=== PATIENT | female | born 1995 | race Caucasian/White ===

== ENCOUNTER 2017-07-27 20:12 | Inpatient (IN) | payer MEDICAID ==
[~2017-07-27] VITALS: Ht 170.2 cm; Wt 112.3 kg
[2017-07-27 20:26] VITALS: BP 132/74; PULSE 79; RESP 18; TEMP 97.8; O2SAT 100
[2017-07-27] MEDS ORDERED: PROZ20CA11 PO (20:30)
[2017-07-27] MEDS ORDERED: SODIUM CHLOR 0.9% 1000 ML INJ 1,000 ML IV SCH (20:52)
--- NOTE | 2017-07-27 20:55 | PD ---
HPI Chief Complaint: Flank/Kidney Pain Time Seen by Provider: 20:46 Travel History International Travel<30 days: No Contact w/Intl Traveler<30days: No Traveled to known affect area: No History of Present Illness HPI 22-year-old female sent here from [facility] for evaluation of left flank pain. Apparently the patient took an overdose of Zoloft a couple days ago and was recently released from [facility] to [facility]. She began complaining of left flank pain and hematuria to them, and told them that she has one kidney, and because of this apparently she is out of their scope of care. According to the transfer note the patient is suicidal, however is voluntary and not under a [place] act. Patient reports that she has had left flank pain for the last 2 days which has been intermittent, sharp, no modifying factors. No nausea or vomiting. No fevers or chills. Reports history of kidney stone. She denies IVDU. She continues to have suicidal thoughts. PFSH Past Medical History Bipolar Disorder: Yes Kidney Stones: Yes Medical other: Yes (one kidney) Psychiatric: Yes (borderline personality disorder) ?: Not Past Surgical History Tonsillectomy: Yes Social History Alcohol Use: No Tobacco Use: No Substance Use: No Allergies-Medications (Allergen,Severity, Reaction): Coded Allergies: Penicillins (Verified Allergy, Severe, 07/27/17) Uncoded Allergies: seafood (Allergy, Severe, 07/27/17) Reported Meds & Prescriptions Reported Meds & Active Scripts Active Reported Prozac (Fluoxetine HCl) 20 Mg Cap 20 Mg PO DAILY Review of Systems Except as stated in HPI: all other systems reviewed are Neg Physical Exam Narrative GENERAL: Well-developed, well-nourished, overweight, comfortable, no apparent distress. SKIN: Focused skin assessment warm/dry. No rash. Left forearm with well healed scars from self inflicted wounds. HEAD: Atraumatic. Normocephalic. EYES: Pupils equal and round. No scleral icterus. No injection or drainage. ENT: Mucous membranes pink and moist. NECK: Trachea midline. No JVD. CARDIOVASCULAR: Regular rate and rhythm. No murmur appreciated. RESPIRATORY: No accessory muscle use. Clear to auscultation. Breath sounds equal bilaterally. GASTROINTESTINAL: Abdomen soft, non-tender, nondistended. Hepatic and splenic margins not palpable. MUSCULOSKELETAL: No obvious deformities. No clubbing. No cyanosis. No edema. No midline vertebral step-off or tenderness. Mild left CVA tenderness. No right CVA tenderness. NEUROLOGICAL: Awake and alert. No obvious cranial nerve deficits. Motor grossly within normal limits. Normal speech. PSYCHIATRIC: Appropriate mood and affect; insight and judgment normal. Data Data Last Documented VS Vital Signs Date Time Temp Pulse Resp B/P (MAP) Pulse Ox O2 Delivery O2 Flow Rate FiO2 07/27/17 21:44 18 98 Room Air 07/27/17 20:26 97.8 79 Orders Orders Complete Blood Count With Diff (07/27/17 20:52) Comprehensive Metabolic Panel (07/27/17 20:52) Lipase (07/27/17 20:52) Prothrombin Time / Inr (Pt) (07/27/17 20:52) Act Partial Throm Time (Ptt) (07/27/17 20:52) Urinalysis - C+S If Indicated (07/27/17 20:52) Ct Abd/Pel W/O Iv Contrast (07/27/17 20:52) Iv Access Insert/Monitor (07/27/17 20:52) Ecg Monitoring (07/27/17 20:52) Oximetry (07/27/17 20:52) Sodium Chlor 0.9% 1000 Ml Inj (Ns 1000 M (07/27/17 20:52) Sodium Chloride 0.9% Flush (Ns Flush) (07/27/17 21:00) Ed Urine Pregnancytest Poc (07/27/17 20:52) Urine Culture (07/27/17 21:30) Ceftriaxone Inj (Rocephin Inj) (07/27/17 23:00) Psych Screen (07/27/17 22:52) Labs Laboratory Tests Test 07/27/17 21:30 White Blood Count 11.1 TH/MM3 Red Blood Count 5.14 MIL/MM3 Hemoglobin 12.7 GM/DL Hematocrit 39.2 % Mean Corpuscular Volume 76.4 FL Mean Corpuscular Hemoglobin 24.8 PG Mean Corpuscular Hemoglobin Concent 32.5 % Red Cell Distribution Width 15.5 % Platelet Count 463 TH/MM3 Mean Platelet Volume 7.5 FL Neutrophils (%) (Auto) 64.5 % Lymphocytes (%) (Auto) 26.8 % Monocytes (%) (Auto) 7.0 % Eosinophils (%) (Auto) 1.3 % Basophils (%) (Auto) 0.4 % Neutrophils # (Auto) 7.2 TH/MM3 Lymphocytes # (Auto) 3.0 TH/MM3 Monocytes # (Auto) 0.8 TH/MM3 Eosinophils # (Auto) 0.1 TH/MM3 Basophils # (Auto) 0.0 TH/MM3 CBC Comment DIFF FINAL Differential Comment Prothrombin Time 10.3 SEC Prothromb Time International Ratio 1.0 RATIO Activated Partial Thromboplast Time 28.7 SEC Urine Color LIGHT-RED Urine Turbidity HAZY Urine pH 5.5 Urine Specific [place] 1.026 Urine Protein 30 mg/dL Urine Glucose (UA) NEG mg/dL Urine Ketones NEG mg/dL Urine Occult Blood LARGE Urine Nitrite NEG Urine Bilirubin NEG Urine Urobilinogen LESS THAN 2.0 MG/DL Urine Leukocyte Esterase TRACE Urine RBC /hpf Urine WBC 5 /hpf Urine Squamous Epithelial Cells 10 /hpf Urine Bacteria MOD /hpf Urine Mucus FEW /lpf Microscopic Urinalysis Comment CULTURE INDICATED Blood Urea Nitrogen 12 MG/DL Creatinine 0.73 MG/DL Random Glucose 79 MG/DL Total Protein 8.8 GM/DL Albumin 4.2 GM/DL Calcium Level 9.3 MG/DL Alkaline Phosphatase 91 U/L Aspartate Amino Transf (AST/SGOT) 27 U/L Alanine Aminotransferase (ALT/SGPT) 43 U/L Total Bilirubin 0.2 MG/DL Sodium Level 138 MEQ/L Potassium Level 4.0 MEQ/L Chloride Level 105 MEQ/L Carbon Dioxide Level 27.6 MEQ/L Anion Gap 5 MEQ/L Estimat Glomerular Filtration Rate 99 ML/MIN Lipase 126 U/L [facility] Medical Decision Making Medical Screen Exam Complete: Yes Emergency Medical Condition: Yes Differential Diagnosis Nephrolithiasis, ureterolithiasis, pyelonephritis, musculoskeletal pain, /ectopic Narrative Course Vital signs are within normal limits. CBC and CMP are unremarkable. UA is suggestive of UTI. CT abdomen pelvis:CONCLUSION: 1. Single left kidney without renal calculi or evidence for obstructive uropathy. No acute findings. Patient was made aware of all findings. She is resting comfortably. She'll be given a dose of 1 g of IV Rocephin and started on Macrobid for her UTI. She is medically cleared for psychiatric evaluation. Diagnosis Primary Impression: UTI (urinary tract infection) Qualified Codes: N39.0 - Urinary tract infection, site not specified; R31.9 - Hematuria, unspecified Additional Impression: Suicidal ideation Scripts Nitrofurantoin Monohydrate Macrocrystals (Macrobid) 100 Mg Cap 100 MG PO BID for Infection for 7 Days, #14 CAP 0 Refills Prov: Franck Og MD 07/28/17 Franck Og MD Jul 27, 2017 20:55
[2017-07-27] MEDS ORDERED: SODIUM CHLORIDE 0.9% FLUSH 10 ML FLUSH IV FLUSH PRN (21:00)
[2017-07-27 21:44] VITALS: RESP 18; O2SAT 98
[2017-07-27 22:01] LABS: AUTOMATED NEUTROPHIL # 7.2 TH/MM3 (1.8-7.7); BASOPHIL % 0.4 % (0.0-2.0); EOSINOPHIL # 0.1 TH/MM3 (0-0.4); EOSINOPHIL % 1.3 % (0.0-4.0); HEMATOCRIT 39.2 % (35.0-46.0); HEMOGLOBIN 12.7 GM/DL (11.6-15.3); LYMPH % 26.8 % (9.0-44.0); MEAN CELL VOLUME 76.4 FL (80.0-100.0); MEAN CORPUSCULAR HEMOGLOBIN 24.8 PG (27.0-34.0); MEAN CORPUSCULAR HGB CONC 32.5 % (32.0-36.0); MEAN PLATELET VOLUME 7.5 FL (7.0-11.0); MONOCYTE # 0.8 TH/MM3 (0-0.9); NEUT % 64.5 % (16.0-70.0); PLATELET COUNT 463 TH/MM3 (150-450); RED BLOOD COUNT 5.14 MIL/MM3 (4.00-5.30); RED CELL DISTRIBUTION WIDTH 15.5 % (11.6-17.2); WHITE BLOOD COUNT 11.1 TH/MM3 (4.0-11.0)
[2017-07-27 22:13] LABS: PROTHROMBIN TIME - PATIENT 10.3 SEC (9.8-11.6)
[2017-07-27 22:19] LABS: ALBUMIN 4.2 GM/DL (3.4-5.0); ALT (GPT) 43 U/L (10-53); AST (GOT) 27 U/L (15-37); BICARBONATE 27.6 MEQ/L (21.0-32.0); BLOOD UREA NITROGEN 12 MG/DL (7-18); CALCIUM 9.3 MG/DL (8.5-10.1); CHLORIDE 105 MEQ/L (98-107); CREATININE 0.73 MG/DL (0.50-1.00); GLOMERULAR FILTRATION RATE 99 ML/MIN (>89); GLUCOSE,RANDOM 79 MG/DL (74-106); SODIUM (NA) 138 MEQ/L (136-145)
[2017-07-27 22:21] LABS: ALKALINE PHOSPHATASE 91 U/L (45-117); TOTAL BILIRUBIN ADULT 0.2 MG/DL (0.2-1.0); TOTAL PROTEIN 8.8 GM/DL (6.4-8.2)
[2017-07-27 22:28] LABS: BACTERIA, URINE MOD /hpf; BILIRUBIN, URINE NEG (NEG); BLOOD, URINE LARGE (NEG); GLUCOSE,URINE NEG (NEG); KETONE, URINE NEG (NEG); MUCUS URINE FEW /lpf (OCC); NITRITE,URINE NEG (NEG); PH, URINE 5.5 (5.0-8.5); SQUAMOUS EPITHELIAL CELL URINE 10 /hpf (0-5); URINE LEUKOCYTE ESTERASE TRACE (NEG)
[2017-07-27 22:29] LABS: URINE COLOR LIGHT-RED (YELLW/STRAW)
--- NOTE | 2017-07-27 22:30 | RADRPT ---
EXAM DATE/TIME: 07/27/2017 22:04 [place] COMPARISON: No previous studies available for comparison. INDICATIONS : Patient complains of hematuria and left flank pain for two days. ORAL CONTRAST: No oral contrast ingested. RADIATION DOSE: 30.95 CTDIvol (mGy) MEDICAL HISTORY : Renal calculi. one kidney SURGICAL HISTORY : Tonsillectomy. ENCOUNTER: Initial ACUITY: 1 day PAIN SCALE: 5/10 LOCATION: Left flank TECHNIQUE: Volumetric scanning of the abdomen and pelvis was performed. Using automated exposure control and ad justment of the mA and/or kV according to patient size, radiation dose was kept as low as reasonably achievable to obtain optimal diagnostic quality images. DICOM format image data is available electro nically for review and comparison. FINDINGS: Lung bases are clear. No acute findings in the liver, spleen, left kidney, adrenals or pancreas. Ther e is some minimal cystic change in the right renal fossa. No free fluid. No bowel obstruction. No adenopathy. No acute bony abnormalities. CONCLUSION: 1. Single left kidney without renal calculi or evidence for obstructive uropathy. No acute findings. Holland Lambert MD on July 27, 2017 at 22:26 Board Certified Radiologist. This report was verified electronically.
[2017-07-27] MEDS ORDERED: cefTRIAXone INJ 1,000 MG in SODIUM CHLORIDE 0.9% INJ 100 ML IV ONE (23:00)
[2017-07-28] MEDS ORDERED: MACR100C2 PO (01:07)
[2017-07-28 02:32] VITALS: BP 138/76; PULSE 78; RESP 18; O2SAT 98
[2017-07-28] MEDS ORDERED: diphenhydrAMINE HCL 50 MG/ML VIAL - HS PRN IM (06:00)
[2017-07-28] MEDS ORDERED: MAGNESIUM HYDROXIDE SUSP 30 ML CUP PO PRN (06:00)
[2017-07-28] MEDS ORDERED: diphenhydrAMINE HCL 50 MG CAP PO PRN (06:00)
[2017-07-28] MEDS ORDERED: diphenhydrAMINE HCL 50 MG/ML VIAL IM PRN (06:00)
[2017-07-28] MEDS ORDERED: FLUoxetine HCL 20 MG CAP PO SCH (09:00)
[2017-07-28 09:15] VITALS: BP 125/63; PULSE 90; RESP 18; TEMP 98.2; O2SAT 98
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
[2017-07-28] MEDS: FLUoxetine HCL 20 MG CAP PO SCH (11:36)
[2017-07-28] MEDS: NITROFURANTOIN MONOHYD MACROCR 100 MG CAP PO SCH ×2 (11:36→20:58)
[2017-07-28] MEDS: ALUMINUM/MAGNESIUM/SIMETH 30 ML CUP PO PRN (13:00)
[2017-07-28] MEDS: ACETAMINOPHEN 325 MG TAB PO PRN (17:56)
[2017-07-28 18:29] VITALS: BP 113/71; PULSE 82; RESP 20; TEMP 98.2; O2SAT 98
[2017-07-28] MEDS: diphenhydrAMINE HCL 50 MG CAP - HS PRN PO (20:58)
[2017-07-29 06:14] VITALS: BP 111/53; PULSE 78; RESP 16; TEMP 97.9; O2SAT 97
[2017-07-29] MEDS: ALUMINUM/MAGNESIUM/SIMETH 30 ML CUP PO PRN (08:17)
[2017-07-29] MEDS: FLUoxetine HCL 20 MG CAP PO SCH (08:17)
[2017-07-29 08:32] LABS: AUTOMATED NEUTROPHIL # 4.3 TH/MM3 (1.8-7.7); BASOPHIL % 0.5 % (0.0-2.0); EOSINOPHIL # 0.2 TH/MM3 (0-0.4); EOSINOPHIL % 2.4 % (0.0-4.0); HEMATOCRIT 35.4 % (35.0-46.0); HEMOGLOBIN 11.5 GM/DL (11.6-15.3); LYMPHOCYTE # 2.4 TH/MM3 (1.0-4.8); MEAN CELL VOLUME 76.4 FL (80.0-100.0); MEAN CORPUSCULAR HEMOGLOBIN 24.8 PG (27.0-34.0); MEAN CORPUSCULAR HGB CONC 32.4 % (32.0-36.0); MEAN PLATELET VOLUME 7.6 FL (7.0-11.0); MONO % 8.9 % (0.0-8.0); MONOCYTE # 0.7 TH/MM3 (0-0.9); NEUT % 56.2 % (16.0-70.0); PLATELET COUNT 366 TH/MM3 (150-450); RED BLOOD COUNT 4.63 MIL/MM3 (4.00-5.30); RED CELL DISTRIBUTION WIDTH 15.4 % (11.6-17.2); WHITE BLOOD COUNT 7.6 TH/MM3 (4.0-11.0)
--- NOTE | 2017-07-29 11:06 | HHI.PYPN ---
Subjective Chief Complaint: Depression, SI Remarks Patient seen and examined with nurse. Chart reviewed. Case discussed with nursing staff. Per nurse, patient is complaining of ongoing depression although there is a disconnect between mood and affect and the patient is noted to be smiling by nursing staff. On my examination today, the patient continues to complain of low mood. Her affect is more consistent with depressed mood on my evaluation. She slept well overnight. She denies any suicidal ideation or urge to self-injurious behavior. No psychotic symptoms. Denies AVH. Denies side effects from medications. She does complain of right upper quadrant abdominal pain and diarrhea without bloody stools. No other physical complaints. Review of Systems Except as stated in HPI: all other systems reviewed are Neg Mental Status Examination Appearance: Appropriate Consciousness: Alert Orientation: x4 Motor Activity: Other (no motor abnormalities noted) Speech: Unremarkable Language: Adequate Fund of Knowledge: Adequate Attention and Concentration: Adequate Memory: Unremarkable Mood: Sad Affect: Sad (remains a little childlike) Thought Process & Associations: Intact Thought Content: Appropriate Hallucination Type: None Delusion Type: None Suicidal Ideation: No Suicidal Plan: No Suicidal Intention: No Homicidal Ideation: No Homicidal Plan: No Homicidal Intention: No Insight: Fair Judgment: Impulsive Results Labs Test 07/29/17 07:19 White Blood Count 7.6 TH/MM3 Red Blood Count 4.63 MIL/MM3 Hemoglobin 11.5 GM/DL Hematocrit 35.4 % Mean Corpuscular Volume 76.4 FL Mean Corpuscular Hemoglobin 24.8 PG Mean Corpuscular Hemoglobin Concent 32.4 % Red Cell Distribution Width 15.4 % Platelet Count 366 TH/MM3 Mean Platelet Volume 7.6 FL Neutrophils (%) (Auto) 56.2 % Lymphocytes (%) (Auto) 32.0 % Monocytes (%) (Auto) 8.9 % Eosinophils (%) (Auto) 2.4 % Basophils (%) (Auto) 0.5 % Neutrophils # (Auto) 4.3 TH/MM3 Lymphocytes # (Auto) 2.4 TH/MM3 Monocytes # (Auto) 0.7 TH/MM3 Eosinophils # (Auto) 0.2 TH/MM3 Basophils # (Auto) 0.0 TH/MM3 CBC Comment DIFF FINAL Differential Comment Thyroid Stimulating Hormone 3rd Gen 0.499 uIU/ML Date/Time Source Procedure Growth Status 07/27/17 21:30 Urine Random Urine Urine Culture - Final 50-100,000 CFU/ML MIXED GRAM POSITIVE... Complete Labs reviewed. Urine culture reveals mixed ulises. TSH within normal limits. Leukocytosis resolved. Mild microcytic anemia noted, possibly dilutional as all cell lines decreased. Vitals/IOs Vital Signs Date Time Temp Pulse Resp B/P (MAP) Pulse Ox O2 Delivery O2 Flow Rate FiO2 07/29/17 06:14 97.9 78 16 111/53 (72) 97 07/28/17 02:32 Room Air Assessment & Plan Problem List: (1) Adjustment disorder with depressed mood ICD Codes: F43.21 - Adjustment disorder with depressed mood (2) Borderline personality disorder ICD Codes: F60.3 - Borderline personality disorder Assessment & Plan Continue Prozac 40 mg daily as ordered for mood. Urine culture reveals mixed ulises, discontinued Macrobid. Check iron studies for microcytic anemia. Check C. difficile in consult the hospitalist for abdominal pain and diarrhea. Continue to monitor on the inpatient unit. Continue other medications and care as ordered. Justification for Cont. Inpt. Complicating condition. Monitoring for impairment in safety, none noted. Discharge Planning Anticipate discharge by the end of the week, and patient is in agreement with this plan. Case discussed with counselor. Request HC Surrog/Guard Advoc?: No Holden Martinez MD Jul 29, 2017 11:06
[2017-07-29 15:26] LABS: % SATURATION IRON PROFILE 5.3 % (20-50); IRON (FE) 25 MCG/DL (50-170); TOTAL IRON BINDING CAPACITY 472 MCG/DL (250-450)
[2017-07-29 15:29] LABS: FERRITIN 13 NG/ML (8-252)
[2017-07-29 18:09] VITALS: BP 130/68; PULSE 75; RESP 18; TEMP 98.6; O2SAT 98
--- NOTE | 2017-07-29 20:41 | PD.CONS ---
HPI Service [facility] Consult Requested By Reason for Consult ruq pain, hematuria Primary Care Physician No Primary Care Physician Diagnoses: History of Present Illness History from patient, and review of medical records. Patient reported that she was admitted at [facility] on Thursday for Zoloft overdose. She reports she took 40 pills of 50 mg Zoloft on Thursday. She required only charcoal treatment. Was not intubated. She was discharged from [facility] on Thursday to [facility] and they sent her to the [facility] after finding that she has hematuria. Patient is admitted to psychiatry inpatient service here. Patient reports that she has been having hematuria for the past 1 week. Also reports of associated left flank pain. 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 She has had prior history of renal stones and has had left renal stent placed about a year ago. She stated the stent was placed in September 2016 and was removed in December 2016. She also reports of urinary burning and pain on urination. She reports she was not on antibiotics at [facility]. She did have abdominal and pelvis CT done while in emergency room here which was negative for any acute pathology. She was given antibiotics in ER IV. Her urine culture is growing only 50-100,000 colonies. Her nitrofurantoin was already discontinued because of this by the psychiatry service. Patient denies any fever. However she does report of right upper quadrant abdominal pain with associated nausea and vomiting which has been worsening since Thursday after ingestion of Zoloft. However she states that these symptoms have been going on even about a week prior although it was never this severe. Her vomitus is green in color according to her. Stated she vomited about 4 times today. She also reports of diarrhea. Medical team was consulted because of all the above symptoms. Review of Systems Except as stated in HPI: all other systems reviewed are Neg Past Family Social History Allergies: Coded Allergies: Penicillins (Verified Allergy, Severe, 07/27/17) Uncoded Allergies: seafood (Allergy, Severe, 07/27/17) Past Medical History Depression Multiple prior suicidal attempts Prior history of renal stones. Status post left renal stent in September 2016. This was removed in December 2016. Absent right kidney at Past Surgical History Tonsillectomy Reported Medications Prozac Family History Father with hypertension Social History Denies smoking/alcohol abuse/drug abuse. Physical Exam Vital Signs Vital Signs Date Time Temp Pulse Resp B/P (MAP) Pulse Ox O2 Delivery O2 Flow Rate FiO2 07/29/17 18:09 98.6 75 18 130/68 (88) 98 07/29/17 06:14 97.9 78 16 111/53 (72) 97 Physical Exam GENERAL: This is a well-nourished, well-developed patient, in no apparent distress. SKIN: No rashes, ecchymoses or lesions. Cool and dry. HEAD: Atraumatic. Normocephalic. No temporal or scalp tenderness. EYES: No scleral icterus. No injection or drainage. ENT: Nose without bleeding, purulent drainage or septal hematoma. Airway patent. NECK: Trachea midline. No JVD . Supple, nontender, no meningeal signs. CARDIOVASCULAR: Regular rate and rhythm without murmurs, gallops, or rubs. RESPIRATORY: Clear to auscultation. Breath sounds equal bilaterally. No wheezes , rales, or rhonchi. GASTROINTESTINAL: Abdomen soft, non-tender, nondistended. . No guarding. MUSCULOSKELETAL: Extremities without clubbing, cyanosis, or edema. No calf tenderness. NEUROLOGICAL: Awake and alert. Motor and sensory grossly within normal limits.. Normal speech. Laboratory Laboratory Tests Test 07/29/17 07:19 07/29/17 12:27 White Blood Count 7.6 Red Blood Count 4.63 Hemoglobin 11.5 Hematocrit 35.4 Mean Corpuscular Volume 76.4 Mean Corpuscular Hemoglobin 24.8 Mean Corpuscular Hemoglobin Concent 32.4 Red Cell Distribution Width 15.4 Platelet Count 366 Mean Platelet Volume 7.6 Neutrophils (%) (Auto) 56.2 Lymphocytes (%) (Auto) 32.0 Monocytes (%) (Auto) 8.9 Eosinophils (%) (Auto) 2.4 Basophils (%) (Auto) 0.5 Neutrophils # (Auto) 4.3 Lymphocytes # (Auto) 2.4 Monocytes # (Auto) 0.7 Eosinophils # (Auto) 0.2 Basophils # (Auto) 0.0 CBC Comment DIFF FINAL Differential Comment Iron Level 25 Total Iron Binding Capacity 472 Percent Iron Saturation 5.3 Ferritin 13 Thyroid Stimulating Hormone 3rd Gen 0.499 Stool C. difficile Toxin (PCR) NEGATIVE Stl C. difficile Toxin Epiderm 027 PRESUMPTIVE NEGATIVE Date/Time Source Procedure Growth Status 07/27/17 21:30 Urine Random Urine Urine Culture - Final 50-100,000 CFU/ML MIXED GRAM POSITIVE... Complete Result Diagram: 07/29/17 0719 07/27/17 2130 Assessment and Plan Assessment and Plan Impression/plan: Hematuria Right upper quadrant abdominal pain with associated nausea/vomiting/diarrhea. Particularly after eating something. Possible symptomatic cholelithiasis versus cholecystitis. Mild leukocytosis with left shift. Resolved. Left flank pain with urinary symptoms. Negative urine cultures. UA personally reviewed. WBC within normal.. Minimal leukocyte esterase. MOstly gross hematuria. Relatively benign examination. Depression Multiple prior suicidal attempts Prior history of renal stones. Status post left renal stent in September 2016. This was removed in December 2016. Absent right kidney at Plan: CT abdomen and pelvis personally reviewed. No evidence of pyelonephritis/renal stones. UA personally reviewed. Apart from hematuria, WBC and leukocyte esterase are quite within normal limits. Urine culture did not reveal significant colonies. Therefore agree with stopping nitrofurantoin. Should be careful with medications given that patient only has one kidney. Because of patient's history of right upper quadrant abdominal pain nausea, vomiting, diarrhea, bilious vomiting post ingestion of food, would obtain ultrasound of the abdomen to rule out cholelithiasis/cholecystitis/ choledocholithiasis. Patient's exam with somewhat benign. Question whether patient is having symptoms due to her severe major depression. Patient just this evening attempted to strangle herself with socks according to the staff and patient. She was therefore moved to 2700 unit for close monitoring. At this point, no antibiotics. No pain meds. We'll follow and decide treatment based on ultrasound findings. DVT prophylaxis with ambulation. Discussed Condition With Patient, nursing staff Taj Wintres MD Jul 29, 2017 20:40
[2017-07-29] MEDS: hydrOXYzine HCL 50 MG TAB PO PRN (21:38)
[2017-07-29] MEDS: diphenhydrAMINE HCL 50 MG CAP - HS PRN PO (21:38)
--- NOTE | 2017-07-30 00:21 | RADRPT ---
EXAM DATE/TIME: 07/29/2017 23:29 [facility] COMPARISON: CT ABDOMEN & PELVIS W/O CONTRAST, July 27, 2017, 22:04. INDICATIONS : Abdomen pain. MEDICAL HISTORY : Renal calculi. Depression. Bipolar disorder. Congenital right renal agenesis. SURGICAL HISTORY : Tonsillectomy. Kidney stent. ENCOUNTER: Initial ACUITY: 3 days PAIN SCORE: 3/10 LOCATION: Abdomen. MEASUREMENTS: LIVER: 16.0 cm length COMMON DUCT: 6 mm RIGHT KIDNEY: Congenitally absent. LEFT KIDNEY: 17.1 x 6.2 x 7.0 cm SPLEEN: 10.8 cm length AORTA: 2.9cm maximal FINDINGS: LIVER: Normal echotexture without focal lesion or ductal dilatation. COMMON DUCT: No intraluminal mass or stone visualized. GALLBLADDER: Contains no stones, demonstrates no wall thickening or pericholecystic fluid. PANCREAS: The visualized portions are within normal limits. RIGHT KIDNEY: Not present. History of renal agenesis. LEFT KIDNEY: Compensatory hypertrophy. No hydronephrosis, stone or mass. SPLEEN: No focal lesion. AORTA: Non aneurysmal. IVC: Within normal limits. CONCLUSION: 1. Borderline common bile duct size without intraluminal mass or stone. This finding is of uncertain clinical significance. 2. Right renal agenesis. 3. Otherwise, unremarkable abdominal ultrasound exam. Specifically, no sonographic evidence for anisa lithiasis or cholecystitis. Israel Boland MD on July 30, 2017 at 0:18 Board Certified Radiologist. This report was verified electronically.
[2017-07-30 05:51] VITALS: BP 120/56; PULSE 70; RESP 18; TEMP 98.1; O2SAT 99
[2017-07-30] MEDS: FLUoxetine HCL 20 MG CAP PO SCH (09:16)
[2017-07-30] MEDS: FERROUS SULFATE 325 MG (65 MG ELEMENTAL IRON) TAB PO SCH ×2 (11:31→17:00)
--- NOTE | 2017-07-30 12:15 | HHI.PYPN ---
Subjective Chief Complaint: Depression, SI Remarks Patient seen and examined with nurse. Chart reviewed. Case discussed with RN. I was notified after hours that the patient had been found trying to strangle herself with a sock on the lower acuity unit. I ordered the patient to be transferred immediately to the high acuity unit, placed in a camera room sans bedding and in paper hospital attire. She remained there overnight without further incident per nurse. On my exam today on 2700 unit, patient reports that she tried to strangle herself with a sock because she was "tired of living. " Borderline personality traits remain prominent. She endorses ongoing SI "a little bit, but not as bad" as last night. No specific plan. She does not presently describe any urge to self-injure on the unit but remains unreliable to contract for safety. Denies any urge to engage in nonsuicidal self- injurious behavior. Mood remains depressed, and we discussed titrating Prozac to target this symptom. No psychotic symptoms. Denies side effects from Prozac. No physical complaints. Review of Systems Except as stated in HPI: all other systems reviewed are Neg Mental Status Examination Appearance: Appropriate Consciousness: Alert Orientation: x4 Motor Activity: Other (no abnormal motor movements noted) Speech: Unremarkable Language: Adequate Fund of Knowledge: Adequate Attention and Concentration: Adequate Memory: Unremarkable Mood: Other (depressed) Affect: Other (restricted and childlike) Thought Process & Associations: Intact, Linear Thought Content: Appropriate Hallucination Type: None Delusion Type: None Suicidal Ideation: Yes Suicidal Plan: No Suicidal Intention: No Homicidal Ideation: No Homicidal Plan: No Homicidal Intention: No Insight: Fair Judgment: Impulsive Results Labs Labs reviewed Test 07/29/17 12:27 Stool C. difficile Toxin (PCR) NEGATIVE Stl C. difficile Toxin Epiderm 027 PRESUMPTIVE NEGATIVE Date/Time Source Procedure Growth Status 07/27/17 21:30 Urine Random Urine Urine Culture - Final 50-100,000 CFU/ML MIXED GRAM POSITIVE... Complete Last Impressions Abdomen Ultrasound 07/29/17 0000 Signed Impressions: Service Date/Time: Saturday, July 29, 2017 23:29 - CONCLUSION: 1. Borderline common bile duct size without intraluminal mass or stone. This finding is of uncertain clinical significance. 2. Right renal agenesis. 3. Otherwise, unremarkable abdominal ultrasound exam. Specifically, no sonographic evidence for cholelithiasis or cholecystitis. Israel Boland MD Abdomen/Pelvis CT 07/27/172051 Signed Impressions: Service Date/Time: Thursday, July 27, 2017 22:04 - CONCLUSION: 1. Single left kidney without renal calculi or evidence for obstructive uropathy. No acute findings. Holland Lambert MD Vitals/IOs Vital Signs Date Time Temp Pulse Resp B/P (MAP) Pulse Ox O2 Delivery O2 Flow Rate FiO2 07/30/17 05:51 98.1 70 18 120/56 (77) 99 07/28/17 02:32 Room Air Assessment & Plan Problem List: (1) Adjustment disorder with depressed mood ICD Codes: F43.21 - Adjustment disorder with depressed mood (2) Borderline personality disorder ICD Codes: F60.3 - Borderline personality disorder Assessment & Plan Titrate Prozac to 50 mg to target dysphoria. We discussed the need to develop more adaptive coping skills. Continue close monitoring in camera room sans bedding in paper attire until patent can reliably contract for safety. Case discussed with RN. Hospitalist input noted and appreciated. Continue other medications and care as ordered. Justification for Cont. Inpt. Impairment in safety. Medication changes. High risk for decompensation in less restrictive environment. Discharge Planning Pending stabilization. Goal remains to keep this short stay as the patient's primary issue is borderline personality disorder, which would not be expected to benefit and might worsen from prolonged hospitalization. However, acute impairment in safety makes discharge impossible today. Request HC Surrog/Guard Advoc?: No Holden Martinez MD Jul 30, 2017 12:15
--- NOTE | 2017-07-30 16:02 | HHI.PR ---
Subjective Remarks Follow-up on patient with right-sided abdominal pain. Patient seen and examined. Patient states abdominal pains been ongoing for the past several weeks but got worse after she took excessive amount of Zoloft pills. She describes it as a sharp pain that is worse after meals lasting for several hours. She denies any associated nausea or vomiting. Denies any diarrhea or constipation. Denies any dark/bloody/black stools. Denies any hematuria or dysuria. Denies any fever or chills. States she was able to tolerate breakfast but did not eat any lunch because of her abdominal pain. Objective Vitals Vital Signs Date Time Temp Pulse Resp B/P (MAP) Pulse Ox O2 Delivery O2 Flow Rate FiO2 07/30/17 05:51 98.1 70 18 120/56 (77) 99 07/29/17 18:09 98.6 75 18 130/68 (88) 98 Result Diagram: 07/29/17 0719 07/27/172129 Imaging Last Impressions Abdomen Ultrasound 07/29/17 0000 Signed Impressions: Service Date/Time: Saturday, July 29, 2017 23:29 - CONCLUSION: 1. Borderline common bile duct size without intraluminal mass or stone. This finding is of uncertain clinical significance. 2. Right renal agenesis. 3. Otherwise, unremarkable abdominal ultrasound exam. Specifically, no sonographic evidence for cholelithiasis or cholecystitis. Israel Boland MD Abdomen/Pelvis CT 07/27/172051 Signed Impressions: Service Date/Time: Thursday, July 27, 2017 22:04 - CONCLUSION: 1. Single left kidney without renal calculi or evidence for obstructive uropathy. No acute findings. Holland Lambert MD Objective Remarks GENERAL: This is a well-nourished, well-developed young obese patient , in no apparent distress. Awake and alert. SKIN: Cool and dry. HEAD: Atraumatic. Normocephalic. EYES: EOMI. No scleral icterus. No injection or drainage. ENT: Nose without bleeding or purulent drainage. Airway patent. MMM. NECK: Trachea midline. No JVD . Supple, nontender, no meningeal signs. CARDIOVASCULAR: Regular rate and rhythm without murmurs, gallops, or rubs. RESPIRATORY: Clear to auscultation. Breath sounds equal bilaterally. No wheezes , rales, or rhonchi. GASTROINTESTINAL: Abdomen soft, nondistended. Mild tenderness to palpation elicited over palpation of epigastric area and RUQ. MUSCULOSKELETAL: Extremities without clubbing, cyanosis, or edema. No calf tenderness. NEUROLOGICAL: Awake and alert. Motor and sensory grossly within normal limits. Normal speech. Medications and IVs Current Medications Medications (Trade) Dose Ordered Sig/Cathie Route Start Time Stop Time Status Last Admin (NS Flush) 2 ml UNSCH PRN IV FLUSH 07/27/17 21:00 (Atarax) 50 mg Q6H PRN PO 07/28/17 06:00 07/29/17 21:38 (Benadryl) 50 mg HS PRN PO 07/28/17 06:00 07/29/17 21:38 (Tylenol) 650 mg Q4H PRN PO 07/28/17 06:00 07/28/17 17:56 (Milk Of Magnesia Liq) 30 ml DAILY PRN PO 07/28/17 06:00 (Mag-Al Plus Susp Liq) 30 ml Q6H PRN PO 07/28/17 06:00 07/29/17 08:17 (Ferrous Sulfate) 325 mg BID@12,17 PO 07/30/17 12:00 07/30/17 11:31 (PROzac) 50 mg DAILY PO 07/31/17 09:00 A/P Assessment and Plan Depression Suicidal ideation/attempt Zoloft overdose -Management per psychiatric team Abdominal pain Diarrhea, resolved -Mostly right upper quadrant and epigastric area worse after meals. -CT of the abdomen and pelvis unremarkable -Ultrasound of the abdomen essentially unremarkable but with borderline common bile duct size, images reviewed by me -LFTs within normal limits -Cdiff negative -Consult GI, appreciate recommendations Bacteruria -UCX growing gram positives, contaminant -abx discontinued Congenitally absent right kidney -Avoid nephrotoxic agents Iron deficiency anemia -Iron studies reviewed, iron 25, TIBC 472, percent saturation 5.3, ferritin 13 -Begin iron supplementation with vitamin C -Obtain B12 and folate level -Monitor CBC as indicated DVT prophylaxis -Patient is ambulatory Tiffani Doyle Jul 30, 2017 16:02
[2017-07-30] MEDS ORDERED: PILL SPLITTER OTHER PRN (16:15)
[2017-07-30 18:02] VITALS: BP 121/71; PULSE 96; RESP 18; TEMP 98.7; O2SAT 97
[2017-07-30] MEDS: diphenhydrAMINE HCL 50 MG CAP - HS PRN PO (20:52)
[2017-07-30] MEDS: FAMOTIDINE 20 MG TAB PO SCH (20:52)
[2017-07-30] MEDS: ASCORBIC ACID 500 MG TAB PO SCH (20:52)
[2017-07-31 01:14] LABS: FOLATE 17.2 NG/ML (3.1-17.5)
[2017-07-31 06:13] VITALS: BP 116/56; PULSE 71; RESP 16; TEMP 96.5; O2SAT 98
[2017-07-31] MEDS: FAMOTIDINE 20 MG TAB PO SCH ×2 (08:24→21:17)
[2017-07-31] MEDS: ASCORBIC ACID 500 MG TAB PO SCH ×2 (08:24→21:17)
[2017-07-31] MEDS: FLUoxetine HCL 10 MG CAP PO SCH (08:24)
[2017-07-31] MEDS: FERROUS SULFATE 325 MG (65 MG ELEMENTAL IRON) TAB PO SCH ×2 (11:34→17:17)
--- NOTE | 2017-07-31 14:10 | HHI.PR ---
Subjective Remarks Follow-up on patient with right-sided abdominal pain. Patient seen and examined. She continues to complain of right upper quadrant pain after meals but states she's been able to eat. Denies any recurrent nausea or vomiting. She is moving her bowels but denies any diarrhea. She denies any fever or chills. She reports pale colored stools. Objective Vitals Vital Signs Date Time Temp Pulse Resp B/P (MAP) Pulse Ox O2 Delivery O2 Flow Rate FiO2 07/31/17 06:13 96.5 71 16 116/56 (76) 98 07/30/17 18:02 98.7 96 18 121/71 (88) 97 Result Diagram: 07/29/17 0719 07/27/172129 Imaging Last Impressions Abdomen Ultrasound 07/29/17 0000 Signed Impressions: Service Date/Time: Saturday, July 29, 2017 23:29 - CONCLUSION: 1. Borderline common bile duct size without intraluminal mass or stone. This finding is of uncertain clinical significance. 2. Right renal agenesis. 3. Otherwise, unremarkable abdominal ultrasound exam. Specifically, no sonographic evidence for cholelithiasis or cholecystitis. Israel Boland MD Abdomen/Pelvis CT 07/27/172051 Signed Impressions: Service Date/Time: Thursday, July 27, 2017 22:04 - CONCLUSION: 1. Single left kidney without renal calculi or evidence for obstructive uropathy. No acute findings. Holland Lambert MD Objective Remarks GENERAL: This is a well-nourished, well-developed young obese patient , in no apparent distress. Awake and alert. Playing cards with the patient in the day room. SKIN: Cool and dry. HEAD: Atraumatic. Normocephalic. EYES: EOMI. No scleral icterus. No injection or drainage. ENT: Nose without bleeding or purulent drainage. Airway patent. MMM. NECK: Trachea midline. No JVD . Supple, nontender, no meningeal signs. CARDIOVASCULAR: Regular rate and rhythm without murmurs, gallops, or rubs. RESPIRATORY: Clear to auscultation. Breath sounds equal bilaterally. No wheezes , rales, or rhonchi. GASTROINTESTINAL: Abdomen soft, nondistended. Mild tenderness to palpation elicited over palpation of epigastric area and RUQ. MUSCULOSKELETAL: Extremities without clubbing, cyanosis, or edema. No calf tenderness. NEUROLOGICAL: Awake and alert. Motor and sensory grossly within normal limits. Normal speech. A/P Assessment and Plan Depression Suicidal ideation/attempt Zoloft overdose -Management per psychiatric team Abdominal pain Diarrhea, resolved -Mostly right upper quadrant and epigastric area worse after meals. Pale stools. -CT of the abdomen and pelvis unremarkable -Ultrasound of the abdomen essentially unremarkable but with borderline common bile duct size, images reviewed by me -LFTs within normal limits -Cdiff negative -Consult GI, appreciate recommendations - pending Bacteruria -UCX growing gram positives, contaminant -abx discontinued Congenitally absent right kidney -Avoid nephrotoxic agents Iron deficiency anemia -Iron studies reviewed, iron 25, TIBC 472, percent saturation 5.3, ferritin 13 -Continue iron supplementation with vitamin C -B12 and folate level within normal limits -Monitor CBC as indicated Vitamin D deficiency -Vitamin D level 8.2 -Ergocalciferol 50,000 units po once then 2000units daily -Patient will need to follow up with her primary care physician to have vitamin D level rechecked in 2-3 months. DVT prophylaxis -Patient is ambulatory Tiffani Doyle Jul 31, 2017 14:10
--- NOTE | 2017-07-31 14:43 | PD.CONS ---
HPI History of Present Illness This is a 22 year old female admitted from [facility] for volunatry psych eval. GI has been consulted for abd pain. Pt reports post prandial RUQ and epigastric pain since 04/2017 that has worsened greatly in the last week. She also experiences nausea but no vomiting. Reports this morning she noticed her stool was nearly white. never had EGD or colonoscopy. Per EMR had recent OD on zoloft but she did not disclose this to me. She reports a family hx of gallbladder problems; a brother had a "gangrenous" gallbladder. (Deanna Villarreal) PFSH Past Medical History depression recent OD on zoloft per EMR Past Surgical History "kidney stent" (Deanna Villarreal) Coded Allergies: Penicillins (Verified Allergy, Severe, 07/27/17) Uncoded Allergies: seafood (Allergy, Severe, 07/27/17) Family History gallbladder problems Social History denies toxic habits (Deanna Villarreal) Review of Systems Constitutional: DENIES: Fever, Weight loss Endocrine: DENIES: Polydipsia Eyes: DENIES: Blurred vision Ears, nose, mouth, throat: DENIES: Hearing loss Respiratory: DENIES: Cough Cardiovascular: DENIES: Chest pain Gastrointestinal: COMPLAINS OF: Abdominal pain, Nausea, DENIES: Black stools, Bloody stools, Constipation, Diarrhea, Vomiting Genitourinary: DENIES: Hematuria Musculoskeletal: DENIES: Joint Swelling Integumentary: DENIES: Jaundice Hematologic/lymphatic: DENIES: Bruising Immunologic/allergic: DENIES: Eczema Neurologic: DENIES: Abnormal gait Psychiatric: DENIES: Confusion (Deanna Villarreal) GI Exam Vitals I&O Vital Signs Date Time Temp Pulse Resp B/P (MAP) Pulse Ox O2 Delivery O2 Flow Rate FiO2 07/31/17 06:13 96.5 71 16 116/56 (76) 98 07/30/17 18:02 98.7 96 18 121/71 (88) 97 Imaging Last Impressions Abdomen Ultrasound 07/29/17 0000 Signed Impressions: Service Date/Time: Saturday, July 29, 2017 23:29 - CONCLUSION: 1. Borderline common bile duct size without intraluminal mass or stone. This finding is of uncertain clinical significance. 2. Right renal agenesis. 3. Otherwise, unremarkable abdominal ultrasound exam. Specifically, no sonographic evidence for cholelithiasis or cholecystitis. Israel Boland MD Abdomen/Pelvis CT 07/27/172051 Signed Impressions: Service Date/Time: Thursday, July 27, 2017 22:04 - CONCLUSION: 1. Single left kidney without renal calculi or evidence for obstructive uropathy. No acute findings. Holland Lambert MD Laboratory Date/Time Source Procedure Growth Status 07/27/17 21:30 Urine Random Urine Urine Culture - Final 50-100,000 CFU/ML MIXED GRAM POSITIVE... Complete Physical Examination HEENT: PERRL; normocephalic; atraumatic; no jaundice. CHEST: CTA CARDIAC: RRR ABDOMEN: Soft, obese, RUQ TTP; no hepatosplenomegaly; bowel sounds are present in all four quadrants. EXTREMITIES: No clubbing, cyanosis, or edema. SKIN: Normal; no rash; no jaundice. EDITING COMPUTER PUBLISHER: No focal deficits; alert and oriented times three. (Deanna Villarreal) Assessment and Plan Plan ASSESSMENT - post prandial RUQ pain, nausea, white stool - suspect biliary etiology. LFTs WNL. onset pain 4m ago but worsening in last week. PLAN - consider MRCP - if above negative consider EGD - monitor LFTs, rck in am - further recs to follow pt seen by myself and Dr Grove and this note is on his behalf (Deanna Villarreal) Plan Patient was seen and examined, agree with above note, patient has iron deficiency , We will plan on doing upper endoscopy on Thursday, if negative then patient will need biliary tree evaluation with MRI (Reina Grove MD) Deanna Villarreal Jul 31, 2017 14:43 Reina Grove MD Jul 31, 2017 18:09
[2017-07-31] MEDS: ERGOCALCIFEROL (VIT D2) 50,000 UNIT CAP PO ONE ×2 (15:00→16:30)
--- NOTE | 2017-07-31 15:30 | HHI.PYPN ---
Subjective Chief Complaint: Depression, SI Remarks Reviewed electronic medical record, labs, and discussed patient with staff. Follow-up performed in room with nurse present. Patient reports that she feels "okay". She states that she slept "pretty good" and that her appetite has been good. At this time she is denying suicidal or homicidal ideation, auditory or visual hallucinations. However, she seems fixated on discharge at this time. Per nursing staff patient has not had any further behavior since the incident where she tried to strangle herself with the sock. Patient requesting to be allowed to use linen in her room. Advised patient we will allow this as long as she had no further behaviors. Her mood still depressed. Mental Status Examination Appearance: Appropriate Consciousness: Alert Orientation: x4 Motor Activity: Other (no abnormal motor movements noted) Speech: Unremarkable Language: Adequate Fund of Knowledge: Adequate Attention and Concentration: Adequate Memory: Unremarkable Mood: Other (depressed) Affect: Other (restricted and childlike) Thought Process & Associations: Intact, Linear Thought Content: Appropriate Hallucination Type: None Delusion Type: None Suicidal Ideation: No Suicidal Plan: No Suicidal Intention: No Homicidal Ideation: No Homicidal Plan: No Homicidal Intention: No Insight: Fair Judgment: Impulsive Results Labs Date/Time Source Procedure Growth Status 07/27/17 21:30 Urine Random Urine Urine Culture - Final 50-100,000 CFU/ML MIXED GRAM POSITIVE... Complete Vitals/IOs Vital Signs Date Time Temp Pulse Resp B/P (MAP) Pulse Ox O2 Delivery O2 Flow Rate FiO2 07/31/17 06:13 96.5 71 16 116/56 (76) 98 07/28/17 02:32 Room Air Assessment & Plan Problem List: (1) Adjustment disorder with depressed mood ICD Codes: F43.21 - Adjustment disorder with depressed mood (2) Borderline personality disorder ICD Codes: F60.3 - Borderline personality disorder Assessment & Plan Estimated LOS: We will continue with treatment plan until patient psychiatrically stable. Justification for Cont. Inpt. Moving this patient to a lower level of care would likely result in decompensation. Request HC Surrog/Guard Advoc?: No Shahana Carter Jul 31, 2017 15:30
[2017-07-31 17:34] VITALS: BP 105/60; PULSE 83; RESP 18; TEMP 98.7; O2SAT 99
[2017-07-31] MEDS: hydrOXYzine HCL 50 MG TAB PO PRN (21:17)
[2017-07-31] MEDS: diphenhydrAMINE HCL 50 MG CAP - HS PRN PO (21:48)
[2017-08-01 05:55] VITALS: BP 117/60; PULSE 86; RESP 18; TEMP 98.2; O2SAT 98
[2017-08-01] MEDS: CHOLECALCIFEROL (VIT D3) 1000 UNIT TAB PO SCH (09:16)
[2017-08-01] MEDS: FAMOTIDINE 20 MG TAB PO SCH ×2 (09:17→20:17)
[2017-08-01] MEDS: FLUoxetine HCL 10 MG CAP PO SCH (09:17)
[2017-08-01] MEDS: ASCORBIC ACID 500 MG TAB PO SCH ×2 (09:17→20:17)
[2017-08-01] MEDS: FERROUS SULFATE 325 MG (65 MG ELEMENTAL IRON) TAB PO SCH ×2 (12:00→18:06)
--- NOTE | 2017-08-01 14:34 | HHI.PR ---
Subjective Remarks Follow-up on patient with right-sided abdominal pain. Patient seen and examined. Patient reports episode of hematuria this morning. She denies any dysuria. Also complains of sensation of needing urinate but being unable to pass any urine. Denies any fever or chills. Reports persistent right upper quadrant pain and nausea following meals. Denies any vomiting. She denies any diarrhea. She is not currently menstruating. Objective Vitals Vital Signs Date Time Temp Pulse Resp B/P (MAP) Pulse Ox O2 Delivery O2 Flow Rate FiO2 08/01/17 05:55 98.2 86 18 117/60 (79) 98 07/31/17 17:34 98.7 83 18 105/60 (75) 99 Result Diagram: 07/29/17 0719 Imaging Last Impressions Abdomen Ultrasound 07/29/17 0000 Signed Impressions: Service Date/Time: Saturday, July 29, 2017 23:29 - CONCLUSION: 1. Borderline common bile duct size without intraluminal mass or stone. This finding is of uncertain clinical significance. 2. Right renal agenesis. 3. Otherwise, unremarkable abdominal ultrasound exam. Specifically, no sonographic evidence for cholelithiasis or cholecystitis. Israel Boland MD Abdomen/Pelvis CT 07/27/172051 Signed Impressions: Service Date/Time: Thursday, July 27, 2017 22:04 - CONCLUSION: 1. Single left kidney without renal calculi or evidence for obstructive uropathy. No acute findings. Holland Lambert MD Objective Remarks GENERAL: This is a well-nourished, well-developed young obese patient , in no apparent distress. Awake and alert. Sitting up in hospital bed crosslegged. Appears comfortable. SKIN: Cool and dry. HEAD: Atraumatic. Normocephalic. EYES: EOMI. No scleral icterus. No injection or drainage. ENT: Nose without bleeding or purulent drainage. Airway patent. MMM. NECK: Trachea midline. No JVD . Supple, nontender, no meningeal signs. CARDIOVASCULAR: Regular rate and rhythm without murmurs, gallops, or rubs. RESPIRATORY: Clear to auscultation. Breath sounds equal bilaterally. No wheezes , rales, or rhonchi. GASTROINTESTINAL: Abdomen soft, nondistended. Mild tenderness to palpation elicited over palpation of epigastric area and RUQ as well as suprapubic. MUSCULOSKELETAL: Extremities without clubbing, cyanosis, or edema. No calf tenderness. NEUROLOGICAL: Awake and alert. Motor and sensory grossly within normal limits. Normal speech. Medications and IVs Current Medications Medications (Trade) Dose Ordered Sig/Cathie Route Start Time Stop Time Status Last Admin (NS Flush) 2 ml UNSCH PRN IV FLUSH 07/27/17 21:00 (Atarax) 50 mg Q6H PRN PO 07/28/17 06:00 07/31/17 21:17 (Benadryl) 50 mg HS PRN PO 07/28/17 06:00 07/31/17 21:48 (Tylenol) 650 mg Q4H PRN PO 07/28/17 06:00 07/28/17 17:56 (Milk Of Magnesia Liq) 30 ml DAILY PRN PO 07/28/17 06:00 (Mag-Al Plus Susp Liq) 30 ml Q6H PRN PO 07/28/17 06:00 07/29/17 08:17 (Ferrous Sulfate) 325 mg BID@12,17 PO 07/30/17 12:00 08/01/17 12:00 (PROzac) 50 mg DAILY PO 07/31/17 09:00 08/01/17 09:17 (Vitamin C) 250 mg BID PO 07/30/17 21:00 08/01/17 09:17 (Pepcid) 20 mg BID PO 07/30/17 21:00 08/01/17 09:17 (Pill Splitter) 1 ea UNSCH PRN OTHER 07/30/17 16:15 (Vitamin D3) 2,000 units DAILY PO 08/01/17 09:00 08/01/17 09:16 A/P Assessment and Plan Depression Suicidal ideation/attempt Zoloft overdose -Management per psychiatric team Abdominal pain Diarrhea, resolved -Mostly right upper quadrant and epigastric area worse after meals. Pale stools. -CT of the abdomen and pelvis unremarkable -Ultrasound of the abdomen essentially unremarkable but with borderline common bile duct size, images reviewed by me -LFTs within normal limits -Cdiff negative -GI following, appreciate assistance. Plan for EGD on Thursday. Bacteruria -UCX growing gram positives, contaminant -abx discontinued Macroscopic Hematuria ppr ?UTI -initial UA suggestive of UTI but urine culture with gram-positive ulises, contaminant. No indication for antibiotics. -Patient reports episode of hematuria as well as inability to void -Repeat UA and check CBC to monitor hemoglobin -Discussed with Leslie RN, strict monitoring of urine output to confirm hematuria. -Consider Urology consult Congenitally absent right kidney -Avoid nephrotoxic agents Iron deficiency anemia -Iron studies reviewed, iron 25, TIBC 472, percent saturation 5.3, ferritin 13 -Continue iron supplementation with vitamin C -B12 and folate level within normal limits -Monitor CBC as indicated Vitamin D deficiency -Vitamin D level 8.2 -Ergocalciferol 50,000 units po once then 2000units daily -Patient will need to follow up with her primary care physician to have vitamin D level rechecked in 2-3 months. DVT prophylaxis -Patient is ambulatory Tiffani Doyle Aug 01, 2017 14:34
--- NOTE | 2017-08-01 14:41 | HHI.GIFU ---
Subjective Remarks Pt resting in bed. c/o continued RUQ pain and nausea. She is still able to eat. No vomiting. (Deanna Villarreal) Objective Vitals I&O Vital Signs Date Time Temp Pulse Resp B/P (MAP) Pulse Ox O2 Delivery O2 Flow Rate FiO2 08/01/17 05:55 98.2 86 18 117/60 (79) 98 07/31/17 17:34 98.7 83 18 105/60 (75) 99 Laboratory Date/Time Source Procedure Growth Status 07/27/17 21:30 Urine Random Urine Urine Culture - Final 50-100,000 CFU/ML MIXED GRAM POSITIVE... Complete Imaging Last Impressions Abdomen Ultrasound 07/29/17 0000 Signed Impressions: Service Date/Time: Saturday, July 29, 2017 23:29 - CONCLUSION: 1. Borderline common bile duct size without intraluminal mass or stone. This finding is of uncertain clinical significance. 2. Right renal agenesis. 3. Otherwise, unremarkable abdominal ultrasound exam. Specifically, no sonographic evidence for cholelithiasis or cholecystitis. Israel Boland MD Abdomen/Pelvis CT 07/27/172051 Signed Impressions: Service Date/Time: Thursday, July 27, 2017 22:04 - CONCLUSION: 1. Single left kidney without renal calculi or evidence for obstructive uropathy. No acute findings. Holland Lambert MD Physical Exam HEENT: PERRL; normocephalic; atraumatic; no jaundice. CHEST: CTA CARDIAC: Regular rate and rhythm with no murmur gallop or rubs. ABDOMEN: Soft, obese, RUQ TTP; no hepatosplenomegaly; bowel sounds are present in all four quadrants. EXTREMITIES: No clubbing, cyanosis, or edema. SKIN: Normal; no rash; no jaundice. COIL WINDER REPAIR: No focal deficits; alert and oriented times three. (Deanna Villarreal) Assessment and Plan Plan ASSESSMENT - post prandial RUQ pain, nausea, white stool - biliary etiology vs gastritis vs ulcer. LFTs WNL. onset pain 4m ago but worsening in last week. US showed borderline CBD size w/o intraluminal mass or stone. of note has hx recent OD with zoloft per EMR. 08/01/17 continued RUQ pain and nausea. NO BM today. PLAN - EGD thursday - obtain consent - NPO after midnight Thursday night - consider MRCP - check LFTs in am - further recs to follow pt seen by myself and Dr Rucker and this note is on his behalf (Deanna Villarreal) Physician Comments Seen and examined with [facility], still with post prandial pain. EGD planned for thursday. (Radhika Rucker MD) Deanna Villarreal Aug 01, 2017 14:41 Radhika Rucker MD Aug 02, 2017 12:30
--- NOTE | 2017-08-01 15:13 | HHI.PYPN ---
Subjective Chief Complaint: Depression, SI Remarks Patient was seen and case discussed with nursing. Patient denies suicidal or homicidal ideation intent or plan. Continues to be monitored in the camera room. Describes her mood today is "okay, tired." Compliant with her medications. No outbursts Mental Status Examination Appearance: Appropriate Consciousness: Alert Orientation: x4 Motor Activity: Other (no abnormal motor movements noted) Speech: Unremarkable Language: Adequate Fund of Knowledge: Adequate Attention and Concentration: Adequate Memory: Unremarkable Mood: Other (depressed) Affect: Other (restricted and childlike) Thought Process & Associations: Intact, Linear Thought Content: Appropriate Hallucination Type: None Delusion Type: None Suicidal Ideation: No Suicidal Plan: No Suicidal Intention: No Homicidal Ideation: No Homicidal Plan: No Homicidal Intention: No Insight: Fair Judgment: Impulsive Results Labs Date/Time Source Procedure Growth Status 07/27/17 21:30 Urine Random Urine Urine Culture - Final 50-100,000 CFU/ML MIXED GRAM POSITIVE... Complete Vitals/IOs Vital Signs Date Time Temp Pulse Resp B/P (MAP) Pulse Ox O2 Delivery O2 Flow Rate FiO2 08/01/17 05:55 98.2 86 18 117/60 (79) 98 Assessment & Plan Problem List: (1) Adjustment disorder with depressed mood ICD Codes: F43.21 - Adjustment disorder with depressed mood (2) Borderline personality disorder ICD Codes: F60.3 - Borderline personality disorder Assessment & Plan Continue current treatment plan Justification for Cont. Inpt. Patient will decompensate in a less restrictive setting Request HC Surrog/Guard Advoc?: No Piter Maddox DO Aug 01, 2017 15:13
[2017-08-01 16:41] LABS: AUTOMATED NEUTROPHIL # 5.2 TH/MM3 (1.8-7.7); BASOPHIL # 0.2 TH/MM3 (0-0.2); BASOPHIL % 1.8 % (0.0-2.0); EOSINOPHIL # 0.2 TH/MM3 (0-0.4); EOSINOPHIL % 2.2 % (0.0-4.0); HEMATOCRIT 34.8 % (35.0-46.0); HEMOGLOBIN 11.9 GM/DL (11.6-15.3); LYMPH % 31.5 % (9.0-44.0); LYMPHOCYTE # 2.9 TH/MM3 (1.0-4.8); MEAN CORPUSCULAR HEMOGLOBIN 26.1 PG (27.0-34.0); MEAN CORPUSCULAR HGB CONC 34.3 % (32.0-36.0); MEAN PLATELET VOLUME 7.9 FL (7.0-11.0); MONO % 7.9 % (0.0-8.0); MONOCYTE # 0.7 TH/MM3 (0-0.9); NEUT % 56.6 % (16.0-70.0); PLATELET COUNT 372 TH/MM3 (150-450); RED BLOOD COUNT 4.58 MIL/MM3 (4.00-5.30); RED CELL DISTRIBUTION WIDTH 15.8 % (11.6-17.2); WHITE BLOOD COUNT 9.2 TH/MM3 (4.0-11.0)
[2017-08-01 16:57] LABS: AMORPHOUS SEDIMENT, URINE RARE; BACTERIA, URINE RARE /hpf; BILIRUBIN, URINE NEG (NEG); BLOOD, URINE LARGE (NEG); GLUCOSE,URINE NEG (NEG); KETONE, URINE NEG (NEG); NITRITE,URINE NEG (NEG); PH, URINE 6.5 (5.0-8.5); SQUAMOUS EPITHELIAL CELL URINE 9 /hpf (0-5); URINE COLOR YELLOW (YELLW/STRAW); URINE LEUKOCYTE ESTERASE SMALL (NEG)
[2017-08-01 18:19] VITALS: BP 127/88; PULSE 86; RESP 17; TEMP 97; O2SAT 98
[2017-08-01] MEDS: diphenhydrAMINE HCL 50 MG CAP - HS PRN PO (20:16)
[2017-08-01] MEDS: hydrOXYzine HCL 50 MG TAB PO PRN (20:17)
[2017-08-01] MEDS: ACETAMINOPHEN 325 MG TAB PO PRN (22:01)
[2017-08-02 06:14] VITALS: BP 111/55; PULSE 89; RESP 17; TEMP 97.5; O2SAT 96
[2017-08-02 11:21] LABS: ALBUMIN 3.7 GM/DL (3.4-5.0); AST (GOT) 22 U/L (15-37); DIRECT BILIRUBIN ADULT LESS THAN 0.1 MG/DL (0.0-0.2)
[2017-08-02 11:24] LABS: ALKALINE PHOSPHATASE 74 U/L (45-117); ALT (GPT) 45 U/L (10-53); INDIRECT BILIRUBIN 0.1 MG/DL (0.0-0.8); TOTAL BILIRUBIN ADULT 0.2 MG/DL (0.2-1.0); TOTAL PROTEIN 7.5 GM/DL (6.4-8.2)
[2017-08-02] MEDS: CHOLECALCIFEROL (VIT D3) 1000 UNIT TAB PO SCH (11:29)
[2017-08-02] MEDS: FLUoxetine HCL 10 MG CAP PO SCH (11:30)
[2017-08-02] MEDS: FAMOTIDINE 20 MG TAB PO SCH ×2 (11:30→21:00)
[2017-08-02] MEDS: ASCORBIC ACID 500 MG TAB PO SCH ×2 (11:30→21:00)
--- NOTE | 2017-08-02 12:41 | HHI.PYPN ---
Subjective Chief Complaint: Depression, SI Remarks Patient was seen and case discussed with nursing. Patient continues to improve. She is compliant with medications social with others on the unit. She denies suicidal or homicidal ideation intent or plan. No agitated or intrusive behavior. Mental Status Examination Appearance: Appropriate Consciousness: Alert Orientation: x4 Motor Activity: Other (no abnormal motor movements noted) Speech: Unremarkable Language: Adequate Fund of Knowledge: Adequate Attention and Concentration: Adequate Memory: Unremarkable Mood: Other (depressed) Affect: Other (restricted and childlike) Thought Process & Associations: Intact, Linear Thought Content: Appropriate Hallucination Type: None Delusion Type: None Suicidal Ideation: No Suicidal Plan: No Suicidal Intention: No Homicidal Ideation: No Homicidal Plan: No Homicidal Intention: No Insight: Fair Judgment: Impulsive Results Labs Test 08/01/17 16:17 08/01/17 16:30 08/02/17 10:40 White Blood Count 9.2 TH/MM3 Red Blood Count 4.58 MIL/MM3 Hemoglobin 11.9 GM/DL Hematocrit 34.8 % Mean Corpuscular Volume 76.0 FL Mean Corpuscular Hemoglobin 26.1 PG Mean Corpuscular Hemoglobin Concent 34.3 % Red Cell Distribution Width 15.8 % Platelet Count 372 TH/MM3 Mean Platelet Volume 7.9 FL Neutrophils (%) (Auto) 56.6 % Lymphocytes (%) (Auto) 31.5 % Monocytes (%) (Auto) 7.9 % Eosinophils (%) (Auto) 2.2 % Basophils (%) (Auto) 1.8 % Neutrophils # (Auto) 5.2 TH/MM3 Lymphocytes # (Auto) 2.9 TH/MM3 Monocytes # (Auto) 0.7 TH/MM3 Eosinophils # (Auto) 0.2 TH/MM3 Basophils # (Auto) 0.2 TH/MM3 CBC Comment DIFF FINAL Differential Comment Urine Color YELLOW Urine Turbidity HAZY Urine pH 6.5 Urine Specific [place] 1.024 Urine Protein 30 mg/dL Urine Glucose (UA) NEG mg/dL Urine Ketones NEG mg/dL Urine Occult Blood LARGE Urine Nitrite NEG Urine Bilirubin NEG Urine Urobilinogen LESS THAN 2.0 MG/DL Urine Leukocyte Esterase SMALL Urine RBC /hpf Urine WBC 2 /hpf Urine Squamous Epithelial Cells 9 /hpf Urine Amorphous Sediment RARE Urine Bacteria RARE /hpf Microscopic Urinalysis Comment CULT NOT INDICATED Total Bilirubin 0.2 MG/DL Direct Bilirubin LESS THAN 0.1 MG/DL Indirect Bilirubin 0.1 MG/DL Aspartate Amino Transf (AST/SGOT) 22 U/L Alanine Aminotransferase (ALT/SGPT) 45 U/L Alkaline Phosphatase 74 U/L Total Protein 7.5 GM/DL Albumin 3.7 GM/DL Date/Time Source Procedure Growth Status 07/27/17 21:30 Urine Random Urine Urine Culture - Final 50-100,000 CFU/ML MIXED GRAM POSITIVE... Complete Vitals/IOs Vital Signs Date Time Temp Pulse Resp B/P (MAP) Pulse Ox O2 Delivery O2 Flow Rate FiO2 08/02/17 06:14 97.5 89 17 111/55 (73) 96 Intake and Output 08/02/17 08/02/17 08/03/17 08:00 16:00 00:00 Intake Total 0 ml Balance 0 ml Assessment & Plan Problem List: (1) Adjustment disorder with depressed mood ICD Codes: F43.21 - Adjustment disorder with depressed mood (2) Borderline personality disorder ICD Codes: F60.3 - Borderline personality disorder Assessment & Plan Continue current treatment plan Justification for Cont. Inpt. Patient would decompensate in a less restrictive setting Request HC Surrog/Guard Advoc?: No Piter Maddox DO Aug 02, 2017 12:41
[2017-08-02] MEDS: FERROUS SULFATE 325 MG (65 MG ELEMENTAL IRON) TAB PO SCH ×2 (13:33→14:11)
--- NOTE | 2017-08-02 13:54 | HHI.PR ---
Subjective Remarks Follow-up on patient with right-sided abdominal pain. Patient seen and examined. Psychiatry decided to hold patient's meals even though her EGD is not scheduled until Thursday. Patient states she continues to see blood in the urine but not as much. She denies dysuria. Denies any fever or chills. Abdominal pain is unchanged. Discussed with SALINA Nelson. Objective Vitals Vital Signs Date Time Temp Pulse Resp B/P (MAP) Pulse Ox O2 Delivery O2 Flow Rate FiO2 08/02/17 06:14 97.5 89 17 111/55 (73) 96 08/01/17 18:19 97.0 86 17 127/88 (101) 98 I/O 08/01/17 08/01/17 08/01/17 08/02/17 08/02/17 08/02/17 07:00 15:00 23:00 07:00 15:00 23:00 Intake Total 720 ml 0 ml Balance 720 ml 0 ml Intake Oral 720 ml 0 ml # Voids 2 1 Result Diagram: 08/01/17 1617 Imaging Last Impressions Abdomen Ultrasound 07/29/17 0000 Signed Impressions: Service Date/Time: Saturday, July 29, 2017 23:29 - CONCLUSION: 1. Borderline common bile duct size without intraluminal mass or stone. This finding is of uncertain clinical significance. 2. Right renal agenesis. 3. Otherwise, unremarkable abdominal ultrasound exam. Specifically, no sonographic evidence for cholelithiasis or cholecystitis. Israel Boland MD Abdomen/Pelvis CT 07/27/172051 Signed Impressions: Service Date/Time: Thursday, July 27, 2017 22:04 - CONCLUSION: 1. Single left kidney without renal calculi or evidence for obstructive uropathy. No acute findings. Holland Lambert MD Objective Remarks GENERAL: This is a well-nourished, well-developed young obese patient , in no apparent distress. Awake and alert. Ambulating in the unit. SKIN: Cool and dry. HEAD: Atraumatic. Normocephalic. EYES: EOMI. No scleral icterus. No injection or drainage. ENT: Nose without bleeding or purulent drainage. Airway patent. MMM. NECK: Trachea midline. CARDIOVASCULAR: Regular rate and rhythm without murmurs, gallops, or rubs. RESPIRATORY: Clear to auscultation. Breath sounds equal bilaterally. No wheezes , rales, or rhonchi. GASTROINTESTINAL: Abdomen soft, nondistended. Mild tenderness to palpation elicited over palpation of epigastric area and RUQ as well as suprapubic. MUSCULOSKELETAL: Extremities without clubbing, cyanosis, or edema. No calf tenderness. NEUROLOGICAL: Awake and alert. Motor and sensory grossly within normal limits. Normal speech. Medications and IVs Current Medications Medications (Trade) Dose Ordered Sig/Cathie Route Start Time Stop Time Status Last Admin (NS Flush) 2 ml UNSCH PRN IV FLUSH 07/27/17 21:00 (Atarax) 50 mg Q6H PRN PO 07/28/17 06:00 08/01/17 20:17 (Benadryl) 50 mg HS PRN PO 07/28/17 06:00 08/01/17 20:16 (Tylenol) 650 mg Q4H PRN PO 07/28/17 06:00 08/01/17 22:01 (Milk Of Magnesia Liq) 30 ml DAILY PRN PO 07/28/17 06:00 (Mag-Al Plus Susp Liq) 30 ml Q6H PRN PO 07/28/17 06:00 07/29/17 08:17 (Ferrous Sulfate) 325 mg BID@12,17 PO 07/30/17 12:00 08/02/17 13:33 (PROzac) 50 mg DAILY PO 07/31/17 09:00 08/02/17 11:30 (Vitamin C) 250 mg BID PO 07/30/17 21:00 08/02/17 11:30 (Pepcid) 20 mg BID PO 07/30/17 21:00 08/02/17 11:30 (Pill Splitter) 1 ea UNSCH PRN OTHER 07/30/17 16:15 (Vitamin D3) 2,000 units DAILY PO 08/01/17 09:00 08/02/17 11:29 A/P Assessment and Plan Depression Suicidal ideation/attempt Zoloft overdose -Management per psychiatric team Abdominal pain Diarrhea, resolved -Mostly right upper quadrant and epigastric area worse after meals. Pale stools. -CT of the abdomen and pelvis unremarkable -Ultrasound of the abdomen essentially unremarkable but with borderline common bile duct size, images reviewed by me -LFTs within normal limits -Cdiff negative -GI following, appreciate assistance. Plan for EGD on Thursday. NPO after MN. Bacteruria -UCX growing gram positives, contaminant -abx discontinued Macroscopic Hematuria Proteinuria -initial UA suggestive of UTI but urine culture with gram-positive ulises, contaminant. No indication for antibiotics. -Patient reports episode of hematuria -Repeat UA with large blood, and proteinuria, no culture indicated. Hemoglobin stable. -Discussed with Leslie RN, strict monitoring of urine output to confirm hematuria. -Consult Urology, appreciate assistance Congenitally absent right kidney -Avoid nephrotoxic agents Iron deficiency anemia -Iron studies reviewed, iron 25, TIBC 472, percent saturation 5.3, ferritin 13 -Hemoglobin stable -Continue iron supplementation with vitamin C -B12 and folate level within normal limits -Monitor CBC as indicated Vitamin D deficiency -Vitamin D level 8.2 -Ergocalciferol 50,000 units po once then 2000units daily -Patient will need to follow up with her primary care physician to have vitamin D level rechecked in 2-3 months. DVT prophylaxis -Patient is ambulatory Tiffani Doyle Aug 02, 2017 13:54
[2017-08-02] MEDS: ACETAMINOPHEN 325 MG TAB PO PRN (14:11)
[2017-08-02 18:16] VITALS: BP 145/65; PULSE 81; RESP 17; TEMP 97.5; O2SAT 98
[2017-08-02] MEDS: diphenhydrAMINE HCL 50 MG CAP - HS PRN PO (21:19)
[2017-08-02] MEDS: hydrOXYzine HCL 50 MG TAB PO PRN (23:00)
[2017-08-03 06:27] VITALS: BP 124/57; PULSE 82; RESP 18; TEMP 98; O2SAT 96
[2017-08-03] MEDS: FAMOTIDINE 20 MG TAB PO SCH (11:37)
[2017-08-03] MEDS: CHOLECALCIFEROL (VIT D3) 1000 UNIT TAB PO SCH (11:37)
[2017-08-03] MEDS: ASCORBIC ACID 500 MG TAB PO SCH ×2 (11:38→20:06)
[2017-08-03] MEDS: FLUoxetine HCL 10 MG CAP PO SCH (11:38)
--- NOTE | 2017-08-03 11:52 | HHI.PYPN ---
Subjective Chief Complaint: Depression, SI Remarks Patient seen and examined with nurse. Chart reviewed. Case discussed with nursing staff. No behavioral issues overnight. On my examination today, patient is status post EGD. She is alert but somewhat sleepy postprocedure. She denies any SI or HI. Denies any urge to self injure. Mood is slowly improving. She notes that the FACT team in [place] has arranged for her to stay in a trailer next to her father. Denies side effects from medications. No acute physical complaints. Review of Systems Except as stated in HPI: all other systems reviewed are Neg Mental Status Examination Appearance: Appropriate Consciousness: Alert Orientation: x4 Motor Activity: Other (no motor abnormalities noted) Speech: Unremarkable Language: Adequate Fund of Knowledge: Adequate Attention and Concentration: Adequate Memory: Unremarkable Mood: Other (mood improving somewhat) Affect: Blunt (childlike) Thought Process & Associations: Intact, Linear Thought Content: Appropriate Hallucination Type: None Delusion Type: None Suicidal Ideation: No Suicidal Plan: No Suicidal Intention: No Homicidal Ideation: No Homicidal Plan: No Homicidal Intention: No Insight: Fair Judgment: Impulsive Results Labs Date/Time Source Procedure Growth Status 07/27/17 21:30 Urine Random Urine Urine Culture - Final 50-100,000 CFU/ML MIXED GRAM POSITIVE... Complete Labs reviewed. EGD report reviewed. Vitals/IOs Vital Signs Date Time Temp Pulse Resp B/P (MAP) Pulse Ox O2 Delivery O2 Flow Rate FiO2 08/03/17 06:27 98.0 82 18 124/57 (79) 96 Assessment & Plan Problem List: (1) Adjustment disorder with depressed mood ICD Codes: F43.21 - Adjustment disorder with depressed mood (2) Borderline personality disorder ICD Codes: F60.3 - Borderline personality disorder Assessment & Plan Continue Prozac as ordered. Appreciate GI and hospitalist product marketing consultant input. Obtain medical clearance for possible Thursday discharge. Continue to monitor on the inpatient unit in the meanwhile. Continue other medications and care as ordered. Justification for Cont. Inpt. Complicating condition, awaiting medical clearance Discharge Planning Possible discharge tomorrow, Thursday Request HC Surrog/Guard Advoc?: No Holden Martinez MD Aug 03, 2017 11:52
[2017-08-03] MEDS: FERROUS SULFATE 325 MG (65 MG ELEMENTAL IRON) TAB PO SCH ×2 (12:10→17:00)
[2017-08-03] MEDS: SULFAMETHOXAZOLE-TRIMETHOPRIM 400-80 MG TAB PO SCH ×2 (14:12→21:00)
[2017-08-03] MEDS ORDERED: ONDANSETRON ODT 4 MG TAB PO ONE (16:00)
[2017-08-03] MEDS ORDERED: ONDANSETRON ODT 4 MG TAB PO PRN (16:00)
--- NOTE | 2017-08-03 16:19 | HHI.PR ---
Subjective Remarks Follow-up on patient with right-sided abdominal pain. Patient seen and examined. Patient reports episode of vomiting x 1 today after lunch. She continues to have RUQ pain. She denies any fever or chills. She reports normal BM this morning. She denies any hematuria today. Objective Vitals Vital Signs Date Time Temp Pulse Resp B/P (MAP) Pulse Ox O2 Delivery O2 Flow Rate FiO2 08/03/17 06:27 98.0 82 18 124/57 (79) 96 08/02/17 18:16 97.5 81 17 145/65 (91) 98 I/O 08/02/17 08/02/17 08/02/17 08/03/17 08/03/17 08/03/17 06:59 14:59 22:59 06:59 14:59 22:59 Intake Total 0 ml Balance 0 ml Intake Oral 0 ml # Voids 1 Result Diagram: 08/01/17 1617 Imaging Last Impressions Abdomen Ultrasound 07/29/17 0000 Signed Impressions: Service Date/Time: Saturday, July 29, 2017 23:29 - CONCLUSION: 1. Borderline common bile duct size without intraluminal mass or stone. This finding is of uncertain clinical significance. 2. Right renal agenesis. 3. Otherwise, unremarkable abdominal ultrasound exam. Specifically, no sonographic evidence for cholelithiasis or cholecystitis. Israel Boland MD Abdomen/Pelvis CT 07/27/172051 Signed Impressions: Service Date/Time: Thursday, July 27, 2017 22:04 - CONCLUSION: 1. Single left kidney without renal calculi or evidence for obstructive uropathy. No acute findings. Holland Lambert MD Objective Remarks GENERAL: This is a well-nourished, well-developed young obese patient , in no apparent distress. Awake and alert. SKIN: Cool and dry. HEAD: Atraumatic. Normocephalic. EYES: EOMI. No scleral icterus. No injection or drainage. ENT: Nose without bleeding or purulent drainage. Airway patent. MMM. NECK: Trachea midline. CARDIOVASCULAR: Regular rate and rhythm without murmurs, gallops, or rubs. RESPIRATORY: Clear to auscultation. Breath sounds equal bilaterally. No wheezes , rales, or rhonchi. GASTROINTESTINAL: Abdomen soft, nondistended. Tenderness to palpation elicited over palpation of epigastric area and RUQ as well as suprapubic. MUSCULOSKELETAL: Extremities without clubbing, cyanosis, or edema. No calf tenderness. NEUROLOGICAL: Awake and alert. Motor and sensory grossly within normal limits. Normal speech. Medications and IVs Current Medications Medications (Trade) Dose Ordered Sig/Cathie Route Start Time Stop Time Status Last Admin (NS Flush) 2 ml UNSCH PRN IV FLUSH 07/27/17 21:00 (Atarax) 50 mg Q6H PRN PO 07/28/17 06:00 08/02/17 23:00 (Benadryl) 50 mg HS PRN PO 07/28/17 06:00 08/02/17 21:19 (Tylenol) 650 mg Q4H PRN PO 07/28/17 06:00 08/02/17 14:11 (Milk Of Magnesia Liq) 30 ml DAILY PRN PO 07/28/17 06:00 (Mag-Al Plus Susp Liq) 30 ml Q6H PRN PO 07/28/17 06:00 07/29/17 08:17 (Ferrous Sulfate) 325 mg BID@12,17 PO 07/30/17 12:00 08/03/17 12:10 (PROzac) 50 mg DAILY PO 07/31/17 09:00 08/03/17 11:38 (Vitamin C) 250 mg BID PO 07/30/17 21:00 08/03/17 11:38 (Pepcid) 20 mg BID PO 07/30/17 21:00 08/03/17 11:37 (Pill Splitter) 1 ea UNSCH PRN OTHER 07/30/17 16:15 (Vitamin D3) 2,000 units DAILY PO 08/01/17 09:00 08/03/17 11:37 (Bactrim 400-80 Mg) 1 tab Q12HR PO 08/03/17 13:00 08/06/17 12:59 08/03/17 14:12 (Zofran Odt) 4 mg Q6H PRN PO 08/03/17 16:00 A/P Assessment and Plan Depression Suicidal ideation/attempt Zoloft overdose -Management per psychiatric team Abdominal pain, N/V Diarrhea, resolved, cdiff negative -Mostly right upper quadrant and epigastric area worse after meals. Pale stools. -CT of the abdomen and pelvis unremarkable -Ultrasound of the abdomen essentially unremarkable but with borderline common bile duct size, images reviewed by me -GI following, s/p EGD earlier today - mild gastritis, continue PPI. -obtain CBC, CMP, lipase -Zofran prn Bacteruria -UCX growing gram positives, contaminant -abx discontinued Macroscopic Hematuria Proteinuria -initial UA suggestive of UTI but urine culture with gram-positive ulises, contaminant. No indication for antibiotics. -Patient reports episode of hematuria -Repeat UA with large blood, and proteinuria, no culture indicated. Hemoglobin stable. -Discussed with Leslie RN, strict monitoring of urine output to confirm hematuria. -Consult Urology, appreciate assistance. Started on Bactrim BID. Congenitally absent right kidney -Avoid nephrotoxic agents Iron deficiency anemia -Iron studies reviewed, iron 25, TIBC 472, percent saturation 5.3, ferritin 13 -Hemoglobin stable -Continue iron supplementation with vitamin C -B12 and folate level within normal limits -Monitor CBC as indicated Vitamin D deficiency -Vitamin D level 8.2 -Ergocalciferol 50,000 units po once then 2000units daily -Patient will need to follow up with her primary care physician to have vitamin D level rechecked in 2-3 months. DVT prophylaxis -Patient is ambulatory Tiffani Doyle Aug 03, 2017 16:19
[2017-08-03] MEDS ORDERED: PANTOPRAZOLE SOD 40 MG DELAYED RELEASE TAB PO ONE (16:30)
[2017-08-03 16:33] VITALS: BP 144/65; PULSE 91; RESP 18; TEMP 98.1; O2SAT 98
[2017-08-03] MEDS: diphenhydrAMINE HCL 50 MG CAP - HS PRN PO (20:06)
[2017-08-03 21:31] LABS: AUTOMATED NEUTROPHIL # 5.3 TH/MM3 (1.8-7.7); BASOPHIL % 0.4 % (0.0-2.0); EOSINOPHIL # 0.2 TH/MM3 (0-0.4); EOSINOPHIL % 1.9 % (0.0-4.0); HEMATOCRIT 34.8 % (35.0-46.0); HEMOGLOBIN 11.2 GM/DL (11.6-15.3); LYMPH % 33.2 % (9.0-44.0); LYMPHOCYTE # 3.2 TH/MM3 (1.0-4.8); MEAN CELL VOLUME 76.8 FL (80.0-100.0); MEAN CORPUSCULAR HEMOGLOBIN 24.8 PG (27.0-34.0); MEAN CORPUSCULAR HGB CONC 32.2 % (32.0-36.0); MEAN PLATELET VOLUME 7.7 FL (7.0-11.0); MONO % 9.6 % (0.0-8.0); MONOCYTE # 0.9 TH/MM3 (0-0.9); NEUT % 54.9 % (16.0-70.0); PLATELET COUNT 374 TH/MM3 (150-450); RED BLOOD COUNT 4.53 MIL/MM3 (4.00-5.30); WHITE BLOOD COUNT 9.6 TH/MM3 (4.0-11.0)
[2017-08-03 21:43] LABS: ALBUMIN 3.5 GM/DL (3.4-5.0); AST (GOT) 17 U/L (15-37); BICARBONATE 29.9 MEQ/L (21.0-32.0); BLOOD UREA NITROGEN 10 MG/DL (7-18); CALCIUM 8.7 MG/DL (8.5-10.1); CHLORIDE 103 MEQ/L (98-107); CREATININE 0.75 MG/DL (0.50-1.00); GLOMERULAR FILTRATION RATE 96 ML/MIN (>89); GLUCOSE,RANDOM 80 MG/DL (74-106); SODIUM (NA) 139 MEQ/L (136-145)
[2017-08-03 21:46] LABS: ALKALINE PHOSPHATASE 76 U/L (45-117); ALT (GPT) 42 U/L (10-53); TOTAL BILIRUBIN ADULT 0.1 MG/DL (0.2-1.0); TOTAL PROTEIN 7.1 GM/DL (6.4-8.2)
[2017-08-04 05:48] VITALS: BP 135/65; PULSE 78; RESP 18; TEMP 97.4; O2SAT 98
[2017-08-04] MEDS ORDERED: PANTOPRAZOLE SOD 40 MG DELAYED RELEASE TAB PO SCH (09:00)
[2017-08-04] MEDS: ASCORBIC ACID 500 MG TAB PO SCH (10:10)
[2017-08-04] MEDS: FLUoxetine HCL 10 MG CAP PO SCH (10:10)
[2017-08-04] MEDS: CHOLECALCIFEROL (VIT D3) 1000 UNIT TAB PO SCH (10:11)
[2017-08-04] MEDS: SULFAMETHOXAZOLE-TRIMETHOPRIM 400-80 MG TAB PO SCH (10:11)
[2017-08-04] MEDS ORDERED: CHOL1000 PO (11:23)
[2017-08-04] MEDS ORDERED: FLUO10CA4 PO (11:23)
[2017-08-04] MEDS ORDERED: SULF400T18 PO (11:23)
[2017-08-04] MEDS ORDERED: ASCO500 PO (11:23)
[2017-08-04] MEDS ORDERED: PANT40TA3 PO (11:23)
[2017-08-04] MEDS ORDERED: FERR325T20 PO (11:23)
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
[2017-08-04] MEDS: FERROUS SULFATE 325 MG (65 MG ELEMENTAL IRON) TAB PO SCH (12:43)
--- NOTE | 2017-08-04 12:59 | HHI.PR ---
Subjective Remarks Follow-up on patient with right-sided abdominal pain. Patient seen and examined. Patient with no further episodes of vomiting. Able to tolerate breakfast and lunch. Now complaining of RUQ pain. No fever or chills. No chest pain or dyspnea. She does not want to be discharged today to home because she does not know where she will be going. Objective Vitals Vital Signs Date Time Temp Pulse Resp B/P (MAP) Pulse Ox O2 Delivery O2 Flow Rate FiO2 08/04/17 05:48 97.4 78 18 135/65 (88) 98 08/03/17 16:33 98.1 91 18 144/65 (91) 98 Result Diagram: 08/03/17204308/03/172043 Imaging Last Impressions Abdomen Ultrasound 07/29/17 0000 Signed Impressions: Service Date/Time: Saturday, July 29, 2017 23:29 - CONCLUSION: 1. Borderline common bile duct size without intraluminal mass or stone. This finding is of uncertain clinical significance. 2. Right renal agenesis. 3. Otherwise, unremarkable abdominal ultrasound exam. Specifically, no sonographic evidence for cholelithiasis or cholecystitis. Israel Boland MD Abdomen/Pelvis CT 07/27/172051 Signed Impressions: Service Date/Time: Thursday, July 27, 2017 22:04 - CONCLUSION: 1. Single left kidney without renal calculi or evidence for obstructive uropathy. No acute findings. Holland Lambert MD Objective Remarks GENERAL: This is a well-nourished, well-developed young obese patient , in no apparent distress. Awake and alert. Appears comfortable. SKIN: Cool and dry. HEAD: Atraumatic. Normocephalic. EYES: EOMI. No scleral icterus. No injection or drainage. ENT: Nose without bleeding or purulent drainage. Airway patent. MMM. NECK: Trachea midline. CARDIOVASCULAR: Regular rate and rhythm without murmurs, gallops, or rubs. RESPIRATORY: Clear to auscultation. Breath sounds equal bilaterally. No wheezes , rales, or rhonchi. GASTROINTESTINAL: Abdomen soft, nondistended. Tenderness to palpation elicited over palpation of epigastric area and RUQ as well as suprapubic. MUSCULOSKELETAL: Extremities without clubbing, cyanosis, or edema. No calf tenderness. NEUROLOGICAL: Awake and alert. Motor and sensory grossly within normal limits. Normal speech. Medications and IVs Current Medications Medications (Trade) Dose Ordered Sig/Cathie Route Start Time Stop Time Status Last Admin (NS Flush) 2 ml UNSCH PRN IV FLUSH 07/27/17 21:00 (Atarax) 50 mg Q6H PRN PO 07/28/17 06:00 08/02/17 23:00 (Benadryl) 50 mg HS PRN PO 07/28/17 06:00 08/03/17 20:06 (Tylenol) 650 mg Q4H PRN PO 07/28/17 06:00 08/02/17 14:11 (Milk Of Magnesia Liq) 30 ml DAILY PRN PO 07/28/17 06:00 (Mag-Al Plus Susp Liq) 30 ml Q6H PRN PO 07/28/17 06:00 07/29/17 08:17 (Ferrous Sulfate) 325 mg BID@12,17 PO 07/30/17 12:00 08/04/17 12:43 (PROzac) 50 mg DAILY PO 07/31/17 09:00 08/04/17 10:10 (Vitamin C) 250 mg BID PO 07/30/17 21:00 08/04/17 10:10 (Pill Splitter) 1 ea UNSCH PRN OTHER 07/30/17 16:15 (Vitamin D3) 2,000 units DAILY PO 08/01/17 09:00 08/04/17 10:11 (Bactrim 400-80 Mg) 1 tab Q12HR PO 08/03/17 13:00 08/06/17 12:59 08/04/17 10:11 (Zofran Odt) 4 mg Q6H PRN PO 08/03/17 16:00 (Protonix) 40 mg DAILY PO 08/04/17 09:00 08/04/17 10:11 A/P Assessment and Plan Depression Suicidal ideation/attempt Zoloft overdose -Management per psychiatric team Abdominal pain, N/V Diarrhea, resolved, cdiff negative -Mostly right upper quadrant and epigastric area worse after meals. Pale stools, resolved. -CT of the abdomen and pelvis unremarkable -Ultrasound of the abdomen essentially unremarkable but with borderline common bile duct size, images reviewed by me -GI following, s/p EGD earlier today - mild gastritis, continue PPI. -lab studies reviewed and all within normal limits -Discussed with Mima RODRIGUEZ, patient may be discharged to home with outpatient follow up with GI -Von prn Bacteruria -UCX growing gram positives, contaminant -abx discontinued Macroscopic Hematuria Proteinuria -initial UA suggestive of UTI but urine culture with gram-positive ulises, contaminant. No indication for antibiotics. -Patient reports episode of hematuria -Repeat UA with large blood, and proteinuria, no culture indicated. Hemoglobin stable. -Discussed with Leslie RN, strict monitoring of urine output to confirm hematuria. -Consult Urology, appreciate assistance. Started on Bactrim BID x 3 days. Congenitally absent right kidney -Avoid nephrotoxic agents Iron deficiency anemia -Iron studies reviewed, iron 25, TIBC 472, percent saturation 5.3, ferritin 13 -Hemoglobin stable -Continue iron supplementation with vitamin C -B12 and folate level within normal limits -Monitor CBC as indicated Vitamin D deficiency -Vitamin D level 8.2 -Ergocalciferol 50,000 units po once then 2000units daily -Patient will need to follow up with her primary care physician to have vitamin D level rechecked in 2-3 months. DVT prophylaxis -Patient is ambulatory Patient may be discharged from a hospitalist standpoint. Tiffani Doyle Aug 04, 2017 12:59
== END 2017-08-04 15:50 | disposition home or self-care (01) | DRG 881 ==
LOC: NEPD 20:12 → NEDA 07-28 06:38 → H260 07-28 09:05 → H270 07-29 20:02 → UNDODISIN 08-03 08:55
PROVIDERS: ADMIT Psychiatry & Neurology Psychiatry; ATTEND Psychiatry & Neurology Psychiatry
PROC: 0DB78ZX Excision of Stomach, Pylorus, Via Natural or Artificial Opening Endoscopic, Diagnostic (ICD-10-PCS; principal; 2017-08-03)
DX: F43.21 Adjustment disorder with depressed mood (principal); F32.2 Major depressive disorder, single episode, severe without psychotic features; R45.851 Suicidal ideations; Q60.0 Renal agenesis, unilateral; F60.3 Borderline personality disorder; R19.7 Diarrhea, unspecified; R31.0 Gross hematuria; D50.9 Iron deficiency anemia, unspecified; E55.9 Vitamin D deficiency, unspecified; R80.9 Proteinuria, unspecified; K29.50 Unspecified chronic gastritis without bleeding; K20.9 Esophagitis, unspecified; K44.9 Diaphragmatic hernia without obstruction or gangrene; Z62.810 Personal history of physical and sexual abuse in childhood; Z81.8 Family history of other mental and behavioral disorders; Z88.0 Allergy status to penicillin; Z91.013 Allergy to seafood; Z91.5 Personal history of self-harm
CPT/HCPCS: 74176; 76700; 80053; 80076; 81001; 82306; 82607; 82728; 82746; 83540; 83550; 83690; 84443; 84703; 85025; 85610; 85730; 87086; 87493; 96361; 96365; 96366; J0696; J7030; Q0163

== ENCOUNTER → 2017-08-03 | Day surgery (SDC) | payer MEDICAID ==
[~2017-08-03] MED LIST: ASCO500 PO; CHOL1000 PO; FERR325T20 PO; FLUO10CA4 PO; LIDOCAINE HCL 1% PF 5 ML SYRINGE OTHER ONE; MACR100C2 PO; PANT40TA3 PO; PROPOFOL 200 MG/20 ML AMP IV ONE; PROZ20CA11 PO; SULF400T18 PO
--- NOTE | 2017-08-03 10:09 | GIPROC ---
[facility] [address] [facility]. [facility], [address] EGD PROCEDURE REPORT EXAM DATE: 08/03/2017 PATIENT NAME: Shae Lainez MR #: [id number] BIRTHDATE: 1995 ATTENDING: Dat Reinoso MD ORDER #: [id number] [employer] OPERATOR: Catrachito Augustin and Mere Musa STATUS: inpatient INDICATIONS: The patient is a 22 yr old female here for an EGD due to epigastric abdominal pain PROCEDURE PERFORMED: EGD w/ biopsy MEDICATIONS: None and Per Anesthesia. TOPICAL ANESTHETIC: none CONSENT: The patient understands the risks and benefits of the procedure and understands that these risks include, but are not limited to: sedation, allergic reaction, infection, perforation and/or bleeding. Alternative means of evaluation and treatment include, among others: physical exam, x-rays, and/or surgical intervention. The patient elects to proceed with this endoscopic procedure. medical equipment was checked for proper function. Hand hygiene and appropriate measures for infection prevention was taken. After the risks, benefits and alternatives of the procedure were thoroughly explained, Informed consent was verified, confirmed and timeout was successfully executed by the treatment team. The patient was anesthetized with topical anesthesia and the Pentax EG-[id number] endoscope was introduced through the mouth and advanced to the second portion of the duodenum. Retroflexion was performed and was normal The gastroscope was then slowly withdrawn and removed. ESOPHAGUS: There was LA Class A esophagitis noted. A 2 cm hiatal hernia was noted. STOMACH: There was mild gastritis in the gastric antrum. Multiple biopsies were performed using cold forceps. Sample sent for histology. DUODENUM: The duodenal mucosa appeared normal in the bulb and second portion of the duodenum. ADVERSE EVENTS: There were no complications. IMPRESSIONS: 1. There was LA Class A esophagitis noted 2. 2 cm hiatal hernia 3. There was mild gastritis in the gastric antrum; multiple biopsies were performed 4. Normal duodenal mucosa in the bulb and second portion of the duodenum 5. Retroflexion was performed and was normal RECOMMENDATIONS: 1. Await biopsy results. Biopsy results will not be ready for 7-10 days. If you don't hear from us in two weeks, call our office for biopsy results. 2. Continue PPI PATIENT CONDITION: stable DISPOSITION: Observation REPEAT EXAM: NONE Dat Reinoso MD eSigned: Dat Reinoso MD 08/03/2017 10:08 AM cc: PATIENT NAME: Shae Lainez MR#: [id number] MTDD
[2017-08-03 10:14] VITALS: BP 122/65; PULSE 72; RESP 18; TEMP 97.4; O2SAT 98
== END | disposition home or self-care (01) ==
LOC: HSDC 09:06
PROVIDERS: ATTEND Specialist
DX: K29.70 Gastritis, unspecified, without bleeding (principal); K20.9 Esophagitis, unspecified; K44.9 Diaphragmatic hernia without obstruction or gangrene
CPT/HCPCS: 88305; 88312